=== PATIENT | female | born 1975 | race Caucasian/White ===

== ENCOUNTER → 2018-08-25 15:26 | Outpatient (CLI) | payer OTHER, SELFPAY ==
--- NOTE | 2018-08-25 | XR_ITS ---
XR foot RT min 3V HISTORY: Posttraumatic pain ITS.REASON: INJURY ORDERING PHYSICIAN: Kimani Wisdom MD PATIENT AGE: 42 years COMPARISON: None FINDINGS: No acute fracture or dislocation is evident. There is minimal exostosis along the distal and lateral aspect of the calcaneus. No significant arthritic change. IMPRESSION: No acute finding
--- NOTE | 2018-08-25 | XR_ITS ---
XR ankle RT min 3V HISTORY: ITS.REASON: INJURY ORDERING PHYSICIAN: Kimani Wisdom MD PATIENT AGE: 42 years Comparison: None FINDINGS: There is mild soft tissue swelling laterally. There is a well-circumscribed defect within the distal fibula measuring 13 x 9 mm and may correspond to an area of postsurgical change. No acute fracture or dislocation evident. The talar dome has an unremarkable appearance. IMPRESSION: 1. Mild soft tissue swelling laterally. 2. Well-circumscribed lucent defect in the distal fibula which may be due to prior surgery
== END ==
PROVIDERS: Visit Provider Nurse Practitioner Obstetrics & Gynecology
DX: M25.571 Pain in right ankle and joints of right foot (principal)
CPT/HCPCS: 73610; 73630

== ENCOUNTER → 2019-12-19 15:03 | Outpatient (CLI) | payer OTHER, SELFPAY ==
[2019-12-19 17:13] LABS: Alanine Aminotransferase 18 U/L (12-78); Albumin Level 4.5 g/dl (3.5-5.0); Alkaline Phosphatase 73 U/L (38-126); Aspartate Amino Transferase 21 U/L (14-36); Bilirubin,Indirect 0.4 mg/dL (0.0-0.9); Bilirubin,Total 0.4 mg/dl (0.2-1.3); Bilirubin,Unconjugated 0.6 mg/dL (0.0-1.1); Total Protein,Serum 7.1 g/dl (6.3-8.2)
[2019-12-19 17:39] LABS: Basophils # 0.1 K/mm3 (0-0.2); Basophils % 1.1 % (0.1-2.0); Eosinophils # 0.2 K/mm3 (0.0-0.4); Hematocrit 45.9 % (37.0-47.0); Hemoglobin 15.3 g/dL (12.2-16.2); Lymphocytes # 1.4 K/mm3 (0.7-4.5); Lymphocytes % 22.1 % (10-50); Mean Corpuscular HGB Conc 33.3 g/dL (31.8-35.4); Mean Corpuscular Hemoglobin 31.8 pg (27.0-31.2); Mean Corpuscular Volume 95.3 fl (81-99); Mean Platelet Volume 8.2 fl (7.4-10.4); Monocytes # 0.5 K/mm3 (0.1-1.0); Monocytes % 8.6 % (1.7-9.3); Neutrophils # 4.1 K/mm3 (1.8-7.8); Neutrophils % 65.2 % (37.0-80.0); Platelet Count 296 K/mm3 (142-424); Red Blood Count 4.82 M/mm3 (4.20-5.40); Red Cell Distribution Width 13.2 % (11.5-17.5); White Blood Count 6.2 K/mm3 (4.8-10.8)
[2019-12-21 08:38] LABS: Hep Be Ag Negative (Negative)
[2019-12-23 11:23] LABS: Hep B Core Ab, Total Negative (Negative); Hepatitis C Antibody <0.1 s/co ratio (0.0-0.9)
== END ==
PROVIDERS: Visit Provider Psychiatry & Neurology Neurology
DX: G35 Multiple sclerosis (principal); M21.371 Foot drop, right foot
CPT/HCPCS: 36415; 80076; 85025; 86704; 87350; 87380

== ENCOUNTER → 2021-11-06 10:44 | Outpatient (CLI) | payer OTHER, SELFPAY ==
[2021-11-06 10:59] LABS: Influenza A, PCR Not Detected (NotDetected); Influenza B, PCR Not Detected (NotDetected)
[2021-11-06 11:24] LABS: Coronavirus 19, PCR Detected (NotDetected)
== END ==
PROVIDERS: Visit Provider Internal Medicine Adolescent Medicine
DX: U07.1 COVID-19 (principal)
CPT/HCPCS: C9803; U0003; U0005

== ENCOUNTER → 2022-08-07 17:00 | Outpatient (CLI) | payer OTHER, SELFPAY ==
[2022-08-07 17:35] LABS: Basophils # 0.1 K/mm3 (0-0.2); Basophils % 1.2 % (0.1-2.0); Eosinophils # 0.1 K/mm3 (0.0-0.4); Eosinophils % 1.4 % (0.1-12.0); Hematocrit 44.5 % (37.0-47.0); Hemoglobin 14.8 g/dL (12.2-16.2); Lymphocytes # 1.6 K/mm3 (0.7-4.5); Lymphocytes % 22.3 % (10-50); Mean Corpuscular HGB Conc 33.1 g/dL (31.8-35.4); Mean Corpuscular Hemoglobin 32.2 pg (27.0-31.2); Mean Corpuscular Volume 97.1 fl (81-99); Mean Platelet Volume 9.2 fl (7.4-10.4); Monocytes # 0.6 K/mm3 (0.1-1.0); Monocytes % 8.6 % (1.7-9.3); Neutrophils # 4.8 K/mm3 (1.8-7.8); Neutrophils % 66.5 % (37.0-80.0); Platelet Count 308 K/mm3 (142-424); Red Blood Count 4.58 M/mm3 (4.20-5.40); White Blood Count 7.3 K/mm3 (4.8-10.8)
[2022-08-07 18:49] LABS: Alanine Aminotransferase 20 U/L (12-78); Albumin Level 4.7 g/dl (3.5-5.0); Alkaline Phosphatase 114 U/L (38-126); Anion Gap 14.3 mEq/L (5-15); Aspartate Amino Transferase 27 U/L (14-36); Bilirubin,Total 0.3 mg/dl (0.2-1.3); Blood Urea Nitrogen 11 mg/dl (7-17); Calcium 9.9 mg/dl (8.4-10.2); Carbon Dioxide 28 mmol/L (22.0-30.0); Chloride 100 mmol/L (98-107); Estimated Glomerular Filt Rate 77 ml/min (>60); GFR (African American) 93 ML/MIN (>60); Globulin 2.4 g/dL (1.3-3.2); Glucose 96 mg/dl (74-100); Potassium 4.3 mmoL/L (3.5-5.1); Sodium 138 mmol/L (136-145); Total Protein,Serum 7.1 g/dl (6.3-8.2)
[2022-08-07 19:05] LABS: 25-OH Vitamin D, Total 25.7 ng/mL (30-100)
[2022-08-09 09:12] LABS: Immunoglobulin G, Qn 1063 mg/dL (586-1602)
== END ==
PROVIDERS: PCP Psychiatry & Neurology Neurology; Visit Provider Psychiatry & Neurology Neurology
DX: G35 Multiple sclerosis (principal); R53.83 Other fatigue; E55.9 Vitamin D deficiency, unspecified
CPT/HCPCS: 80053; 82306; 82784; 85025

== ENCOUNTER → 2023-01-29 11:42 | Outpatient (CLI) | payer OTHER, SELFPAY ==
--- NOTE | 2023-01-29 11:42 | MR_ITS ---
FINAL REPORT CLINICAL HISTORY: MS Protocol FINDINGS: Multiplanar MR imaging of the brain was performed without and with contrast. There are several small foci of increased T2 signal predominantly in the periventricular white matter. The largest periventricular focus measures 7 mm. These are nonspecific and may represent demyelination or mild chronic ischemic/gliotic change. There is no evidence of intracranial hemorrhage or mass. No abnormal extra-axial fluid collection is seen. The ventricular size is within normal limits. There is no evidence of shift of the midline structures. The posterior fossa and brainstem have an unremarkable appearance. No area of abnormal restricted diffusion is identified. No abnormal contrast enhancement is seen. Normal major vessel vascular flow voids are noted. IMPRESSION: Increased T2 signal, predominantly in the periventricular white matter, is nonspecific and may represent demyelination or mild chronic ischemic/gliotic change. Reviewed, Interpreted and Dictated by Long Leo III, MD Transcribed by Tammie Wilson Authenticated and [facility]
== END ==
PROVIDERS: PCP Psychiatry & Neurology Neurology; Visit Provider Nurse Practitioner Obstetrics & Gynecology
DX: G35 Multiple sclerosis (principal)
CPT/HCPCS: 70553; A9576

== ENCOUNTER → 2023-03-10 10:39 | Outpatient (CLI) | payer OTHER, SELFPAY ==
--- NOTE | 2023-03-10 10:45 | XR_ITS ---
FINAL REPORT CLINICAL HISTORY: Left hand pain after injury. FINDINGS: LEFT HAND Three views show no evidence of acute displaced fracture or dislocation of the visualized bony architecture. The joint spaces appear normal. IMPRESSION: Unremarkable exam. Reviewed, Interpreted and Dictated by Issa Gonzalez MD Transcribed by Tammie Wilson Authenticated and [facility]
== END ==
PROVIDERS: Visit Provider Nurse Practitioner Obstetrics & Gynecology
DX: M79.642 Pain in left hand (principal); S69.92XA Unspecified injury of left wrist, hand and finger(s), initial encounter
CPT/HCPCS: 73130

== ENCOUNTER → 2023-06-26 13:54 | Outpatient (CLI) | payer OTHER, SELFPAY ==
[2023-06-28 08:11] LABS: Hep B Surface Ab, Qual Reactive (.); Measles Antibodies, IgG 18.2 AU/mL (Immune >16.4); Rubella Antibodies, IgG 2.97 index (Immune >0.99); Varicella Zoster IgG 982 index (Immune >165)
== END ==
PROVIDERS: Visit Provider Nurse Practitioner Obstetrics & Gynecology
DX: Z01.84 Encounter for antibody response examination (principal)
CPT/HCPCS: 36415; 86706; 86735; 86762; 86765; 86787